=== PATIENT | female | born 2005 | race Two or more races ===

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

== ENCOUNTER 2024-01-17 18:13 | Emergency (ER) | payer OTHER, SELFPAY ==
[2024-01-17 18:16] VITALS: BP 98/65; PULSE 110; RESP 17; TEMP 38.3; O2SAT 99; BMI 22.9
--- NOTE | 2024-01-17 18:19 | ED_ITS ---
HPI - General Adult General Chief complaint: Abdominal Pain Stated complaint: abd pain + headache Time Seen by Provider: 01/17/24 21:14 Source: patient Mode of arrival: ambulatory Limitations: no limitations History of Present Illness ED Provider: Dr. Cristiana Carter HPI narrative: patient comes to the emergency room complaining of a sore throat and abdominal discomfort for the last 48 hours. Patient denies fever or chills. Patient states that anything that she swallows it hurts. Patient complaining of body aches, headache, denies neck stiffness. Patient states that the last time she took ibuprofen was approximately 13 hours ago Related Data Previous Rx's ?Medication ?Instructions ?Recorded hyoscyamine sulfate 0.125 mg 0.125 mg PO QID PRN dyspepsia #10 10/11/22 disintegrating tablet tabs ondansetron HCl 4 mg tablet 4 mg PO Q6H PRN nausea and 10/11/22 vomiting #14 tabs acetaminophen 500 mg tablet 500 mg PO Q6H PRN fever or pain 01/17/24 #14 tabs amoxicillin 500 mg-potassium 1 tab PO TID 10 days #30 tabs 01/17/24 clavulanate 125 mg tablet (Augmentin) ibuprofen 600 mg tablet 600 mg PO TID PRN fever or pain 01/17/24 #14 tabs Allergies Allergy/AdvReac Type Severity Reaction Status Date / Time No Known Allergies Allergy Verified 01/17/24 18:22 [No Known Allergies*] Review of Systems Review of Systems: Constitutional : No Weight loss, No Fever, No Chills, No Night Sweats, No Fatigue, No Malaise ENT/Mouth : No Hearing loss, No Ear Pain, No Nasal Congestion, No Sinus Pain, No Hoarseness, complaining of sore throat, No Rhinorrhea, No Swallowing Difficulty Eyes: No Eye Pain, No Swelling, No Redness, No Foreign Body, No Discharge, No Vision Changes Cardiovascular : No Chest Pain, No SOB, No Dyspnea on Exertion, No Orthopnea, No Edema, No Palpitations Respiratory : No Cough, No Sputum, No Wheezing, No Smoke Exposure, No Dyspnea Gastrointestinal : No Nausea, No Vomiting, No Diarrhea, No Constipation, No abdominal Pain, No Hematochezia, No Melena Genitourinary : no irregular bleeding, No Dysuria, No Urinary Frequency, No Hematuria, No Urinary Incontinence, No Urgency, No Flank Pain, No Urinary Flow Changes, No Hesitancy Musculoskeletal : No joint pain, No Myalgias, No Joint Swelling Skin : No Skin Lesions, No rash Neuro : No Weakness, No Numbness, No Paresthesias, No Loss of Consciousness, No Dizziness, complaining of Headache Psych : No Anxiety/Panic, No Depression, No SI/HI/AH/VH, No Social Issues, Heme/Lymph: No Bruising, No Bleeding,No Lymphadenopathy Endocrine : No Polyuria, No Polydipsia, No Temperature Intolerance [facility] Social History Social History Smoked in Last 30 Days: No Use of substances other than those prescribed or required for medical reasons: No Substance Use Type: Marijuana Advance Directives: No Advance Directives Information Provided: No Do you have a plan to hurt others: No Plan Patient : No Physical Exam ED Vital Signs: Vital Signs - 24 hr 01/17/24 18:16 01/17/24 20:18 01/17/24 21:40 Temperature 100.9 F H 101.3 F H 101.6 F H Pulse Rate 110 H 99 104 H Respiratory Rate 17 18 20 Blood Pressure 98/65 122/61 124/64 Pulse Oximetry 99 99 98 Oxygen Delivery Method Room Air Room Air Room Air 01/17/24 21:49 Temperature 101.6 F H Pulse Rate 104 H Respiratory Rate 20 Blood Pressure 124/64 Pulse Oximetry 98 Oxygen Delivery Method Room Air BMI result Body Mass Index 22.9 Const Other: Appearance: Alert. Oriented X3. No acute distress. Eyes: Pupils equal, round and reactive to light. ENT: pharynx erythematous, no exudates, no visualized abscesses Neck: Normal inspection. Neck supple. No lymph nodes noted. No crepitus CVS: Normal heart rate and rhythm. Pulses normal. Normal S1 and S2 Respiratory: No respiratory distress. Breath sounds normal. No Wheezing. No rales Abdomen: Soft and nontender. No rigidity. No distention. Skin: Skin warm and dry. Normal skin color. Normal skin turgor. Extremities: No lower extremity edema. No Lacerations. No Rash Neuro: Oriented X 3. No motor deficit. No sensory deficit. Moving all extremities. No slurred speech. CN 2 through 12 grossly intact Psych: calm, cooperative, normal affect Course Course Course Narrative: RME performed by Marybel Sebastian PA-C. Patient is a 18 year old assigned female at presenting to the emergency department with a sore throat, nausea, and chills. Detailed physical exam and review of systems are deferred to the director of primary. Swabs ordered. Patient placed back in the waiting room pending room availability and results. Medications Administered Discontinued Medications Generic Name Dose Route Start Last Admin Trade Name Frehanna PRN Reason Stop Dose Admin Acetaminophen 650 mg 01/17/24 21:24 01/17/24 21:41 Acetaminophen 325 Mg Tablet PO 01/17/24 21:25 650 mg ONCE ONE Administration Amoxicillin/Clavulanate Potassium 500 mg 01/17/24 21:19 01/17/24 21:41 Amoxicillin/Potassium Clav 500 Mg Tablet PO 01/17/24 21:20 500 mg ONCE ONE Administration Dexamethasone Sodium Phosphate 4 mg 01/17/24 21:19 01/17/24 21:41 Dexamethasone Sod Phosphate 4 Mg/Ml Vial IVPUSH 01/17/24 21:20 4 mg ONCE ONE Administration Ibuprofen 600 mg 01/17/24 21:24 01/17/24 21:42 Ibuprofen 600 Mg Tablet PO 01/17/24 21:25 600 mg ONCE ONE Administration Lidocaine HCl 15 ml 01/17/24 21:19 01/17/24 21:40 Lidocaine Hcl Viscous 2 % 15 Ml Solution MUCOUS MEM 01/17/24 21:20 15 ml ONCE ONE Administration Ondansetron HCl 4 mg 01/17/24 21:31 01/17/24 21:33 Ondansetron Odt 4 Mg Tab.Rapdis TRANSLINGU 01/17/24 21:32 4 mg ONCE ONE Administration Medical Decision Making Medical Decision Making [facility] Narrative: - my interpretation of labs: Patient tested positive for strep - patient given p.o. acetaminophen, ibuprofen in the ED, also p.o. Augmentin, dexamethasone and viscous lidocaine for symptomatic relief Differential Diagnosis Differential Diagnoses: The differential diagnosis associated with the presentation includes ( strep pharyngitis, COVID, viral URI, viral pharyngitis) Lab Data [facility] Lab Attestation statement: I reviewed the patient's lab results. Labs: Lab Results 01/17/24 Range/Units 18:29 Influenza Type A (PCR) NEGATIVE (Negative) Influenza Type B (PCR) NEGATIVE (Negative) RSV RNA Qual (PCR) NEGATIVE (Negative) SARS-CoV-2 RNA (RT-PCR) NEGATIVE (Negative) S. pyogenes GrpA DONY Positive A (Negative) Discharge Plan Discharge Clinical Impression: Acute streptococcal pharyngitis Patient Disposition: Home, Self-Care Instructions: Strep Throat (ED) Additional Instructions: Please follow-up with your primary care physician tomorrow. If you have any worsening or new symptoms, please return to the emergency room or call 911 Prescriptions: New amoxicillin-pot clavulanate [Augmentin] 500-125 mg tablet 1 tab PO TID 10 Days Qty: 30 0RF ibuprofen 600 mg tablet 600 mg PO TID PRN (Reason: fever or pain) Qty: 14 0RF acetaminophen 500 mg tablet 500 mg PO Q6H PRN (Reason: fever or pain) Qty: 14 0RF No Action hyoscyamine sulfate 0.125 mg tablet,disintegrating 0.125 mg PO QID PRN (Reason: dyspepsia) Qty: 10 0RF ondansetron HCl 4 mg tablet 4 mg PO Q6H PRN (Reason: nausea and vomiting) Qty: 14 0RF Stand Alone Forms: Work/School Release Interventions: ED Discharge Assessment Last Done: 01/17/24 21:49 Print Language: Danish
[2024-01-17 18:38] LABS: IDNOW Serial# 58CA691E; Strep A Nucleic Acid Positive (Negative)
[2024-01-17 19:17] LABS: Influenza A PCR NEGATIVE (Negative); Influenza B PCR NEGATIVE (Negative); Resp Syncy Virus RNA Qual PCR NEGATIVE (Negative); SARS COV2 PCR INHOUSE NEGATIVE (Negative)
[2024-01-17 20:18] VITALS: BP 122/61; PULSE 99; RESP 18; TEMP 38.5; O2SAT 99
[2024-01-17] MEDS: Ondansetron ODT 4 MG TAB.RAPDIS TRANSLINGU (21:33)
[2024-01-17 21:40] VITALS: BP 124/64; PULSE 104; RESP 20; TEMP 38.7; O2SAT 98
[2024-01-17] MEDS: Lidocaine HCl Viscous 2 % 15 ML SOLUTION MUCOUS MEM (21:40)
[2024-01-17] MEDS: Acetaminophen 325 MG TABLET 650 MG PO (21:41)
[2024-01-17] MEDS: dexAMETHasone sod phosphate 4 MG/ML VIAL IVPUSH (21:41)
[2024-01-17] MEDS: Amoxicillin/Potassium Clav 500 MG TABLET PO (21:41)
[2024-01-17] MEDS: Ibuprofen 600 MG TABLET PO (21:42)
[2024-01-17 21:49] VITALS: BP 124/64; PULSE 104; RESP 20; TEMP 38.7; O2SAT 98
== END 2024-01-17 21:49 | disposition home or self-care (01) ==
PROVIDERS: Physician Assistant Medical; Emergency Provider Emergency Medicine; PCP Pediatrics
DX: J02.0 Streptococcal pharyngitis (principal); R10.9 Unspecified abdominal pain; M79.10 Myalgia, unspecified site; R51.9 Headache, unspecified; Z03.818 Encounter for observation for suspected exposure to other biological agents ruled out
CPT/HCPCS: 0241U; 87651; 96374; 99284; J1100

== ENCOUNTER 2024-06-29 15:10 | Emergency (ER) | payer OTHER, SELFPAY ==
--- NOTE | ~2024-06-29 | US_ITS ---
EXAMINATION: US PELVIS CLINICAL INFORMATION: Ovarian torsion COMPARISON: None available. TECHNIQUE: Ultrasound of the pelvis is performed using both transabdominal and transvaginal transducers along with Doppler. Transvaginal imaging is performed due to inadequate visualization transabdominally. FINDINGS: Uterus: The uterus is anteverted and measures 7.9 x 3.3 x 3.8 cm. The double wall endometrial thickness is 10 mm. The uterus is smooth in contour and has normal myometrial echogenicity. No visible fibroid. Adnexa: Both ovaries are visualized. There is normal color flow to the adnexa. There is no ovarian torsion. There is no pelvic ascites or fluid collection. Right ovary 8 mL in volume and left ovary measures 15 mL in volume. Is normal arteriovenous flow seen to both ovaries. US/US pelvic and transvaginal IMPRESSION: No evidence of any active ovarian torsion. Electronically signed by: Vladimir Moffett MD 06/29/2024 08:21 PM [facility]
--- NOTE | ~2024-06-29 | CT_ITS ---
EXAMINATION: CT ABDOMEN AND PELVIS WITH CONTRAST CLINICAL INFORMATION: Right lower quadrant pain COMPARISON: None available. TECHNIQUE: Multidetector volumetric images were obtained from the superior aspect of the liver through the pubic symphysis following administration 85 mL of Omnipaque 350 intravenous contrast. Sagittal and coronal reformatted images were obtained on the technologist's workstation. Oral contrast: No This CT examination was performed using dose optimization techniques as appropriate, variously including the following: *Automated exposure control *Adjustment of mA and/or kV according to patient size (this includes techniques or standardized protocols for targeted exams where dose is matched to indication/reason for exam; i.e. extremities or head) *Use of iterative reconstruction technique DLP: 339 mGy-cm FINDINGS: LUNG BASES: The visualized lung bases are unremarkable. LIVER, GALLBLADDER, AND BILIARY TREE: The liver is normal in size, shape, and attenuation. No focal hepatic lesion or biliary ductal dilatation is present. The gallbladder is unremarkable with no evidence of radiopaque gallstones, gallbladder wall thickening, or obvious pericholecystic inflammatory changes. PANCREAS: Unremarkable. SPLEEN: Unremarkable. ADRENAL GLANDS: Unremarkable. KIDNEYS AND URETERS: The kidneys are normal in size, shape, and attenuation. No hydronephrosis, hydroureter, or calculi seen. No perinephric stranding. BLADDER: Unremarkable. Appendix is retrocecal. GASTROINTESTINAL TRACT: The small and large bowel are unremarkable. The appendix is unremarkable. ABDOMINAL WALL: No significant hernia is appreciated. LYMPH NODES: Normal. VASCULAR: Unremarkable. PELVIC VISCERA: Unremarkable. OSSEOUS STRUCTURES: Unremarkable. CT/CT abdomen pelvis w IV con IMPRESSION: Normal appendix. No focal abnormality to explain patient's symptoms. Fleischner guidelines were followed. Electronically signed by: Vladmiir Moffett MD 06/29/2024 08:27 PM [facility]
--- NOTE | ~2024-06-29 | US_ITS ---
EXAMINATION: US PELVIS CLINICAL INFORMATION: Ovarian torsion COMPARISON: None available. TECHNIQUE: Ultrasound of the pelvis is performed using both transabdominal and transvaginal transducers along with Doppler. Transvaginal imaging is performed due to inadequate visualization transabdominally. FINDINGS: Uterus: The uterus is anteverted and measures 7.9 x 3.3 x 3.8 cm. The double wall endometrial thickness is 10 mm. The uterus is smooth in contour and has normal myometrial echogenicity. No visible fibroid. Adnexa: Both ovaries are visualized. There is normal color flow to the adnexa. There is no ovarian torsion. There is no pelvic ascites or fluid collection. Right ovary 8 mL in volume and left ovary measures 15 mL in volume. Is normal arteriovenous flow seen to both ovaries. US/US pelvic ovarian doppler IMPRESSION: No evidence of any active ovarian torsion. Electronically signed by: Vladimir Moffett MD 06/29/2024 08:21 PM [facility]
[2024-06-29 15:42] VITALS: BP 121/78; PULSE 95; RESP 20; TEMP 36.7; O2SAT 99; BMI 22.5
--- NOTE | 2024-06-29 15:49 | ED_ITS ---
HPI - General Adult General Chief complaint: Abdominal Pain Stated complaint: Abd pain Time Seen by Provider: 06/29/24 17:17 Source: patient Mode of arrival: ambulatory Limitations: no limitations History of Present Illness ED Provider: Seth Thomas HPI narrative: 19-year-old female presents to ED for right lower quadrant tenderness since last night. Patient states having nausea and vomiting. Patient denies any GI or urinary symptoms. Patient denies any flank pain fever or chills. Related Data Previous Rx's ?Medication ?Instructions ?Recorded hyoscyamine sulfate 0.125 mg 0.125 mg PO QID PRN dyspepsia #10 10/11/22 disintegrating tablet tabs ondansetron HCl 4 mg tablet 4 mg PO Q6H PRN nausea and 10/11/22 vomiting #14 tabs acetaminophen 500 mg tablet 500 mg PO Q6H PRN fever or pain 01/17/24 #14 tabs amoxicillin 500 mg-potassium 1 tab PO TID 10 days #30 tabs 01/17/24 clavulanate 125 mg tablet (Augmentin) ibuprofen 600 mg tablet 600 mg PO TID PRN fever or pain 01/17/24 #14 tabs naproxen 500 mg tablet 500 mg PO BID PRN pain 7 days #14 06/29/24 tabs Allergies Allergy/AdvReac Type Severity Reaction Status Date / Time No Known Allergies Allergy Verified 06/29/24 15:44 [No Known Allergies*] Review of Systems 2 Review of Systems: Right lower quadrant abdominal pain Yes all other systems are reviewed and are negative PMFSH Social History Social History Substance Use Type: Marijuana Advance Directives: No Advance Directives Information Provided: No Do you have a plan to hurt others: No Plan Physical Exam ED Vital Signs: Vital Signs - 24 hr 06/29/24 15:42 06/29/24 17:22 06/29/24 18:52 Temperature 98.1 F 97.8 F Pulse Rate 95 79 71 Respiratory Rate 20 16 16 Blood Pressure 121/78 111/70 95/57 L Pulse Oximetry 99 100 99 Oxygen Delivery Method Room Air Room Air Room Air 06/29/24 20:44 06/29/24 21:02 Temperature 98.4 F 98.4 F Pulse Rate 76 76 Respiratory Rate 16 16 Blood Pressure 107/69 107/69 Pulse Oximetry 96 96 Oxygen Delivery Method Room Air Room Air BMI result Body Mass Index 22.5 Const General: cooperative, healthy appearing, comfortable, no acute distress, well developed, alert, awake and Physically active Orientation/consciousness: patient oriented x3 HENMT Head: Yes normal to inspection, Yes No palpable skull fracture present and Yes normocephalic Eyes General: appearance normal, both eyes and all related structures Neck Neck: Yes normal visual inspection, Yes full ROM, Yes no lymphadenopathy, Yes no meningeal signs, Yes trachea midline, Yes supple, No anterior neck swelling and No tender Chest Chest palpation & inspection: normal inspection of the chest and normal palpation of entire chest wall Resp Effort & Inspection: normal respiratory effort and able to speak in complete sentences Auscultation: clear to auscultation bilaterally Cardio Jugular venous distension: no JVD Heart sounds: S1 normal heart sound present and S2 normal heart sound present GI Inspection: Yes normal to inspection Palpation (GI): Soft to palpation, not firm, Tenderness to palpation present (GI) in the RLQ, Guarding due to palpation present (GI) in the RLQ and not rigid General: Yes no CVA tenderness Back/Spine/Pelvis Back: no CVA tenderness and No back tenderness Skin General skin exam: no rashes or lesions noted, elasticity normal and turgor normal Neuro General: patient oriented x3, gait normal, tone normal, moves all extremities, Normal light touch and pain sensation, no meningeal signs, no focal motor deficits, CN's II-XI intact bilaterally and normal sensation to monofilament Extrem General: Yes normal to inspection, Yes full ROM and Yes capillary refill normal Psych Appearance: grossly normal, well kempt and not disheveled Course Course Course Narrative: RME: 19-year-old female presents to ED for right lower quadrant pain since last night with nausea and vomiting. Physical exam positive for right lower quadrant tenderness on palpation labs ordered. Medications Administered Discontinued Medications Generic Name Dose Route Start Last Admin Trade Name Freq PRN Reason Stop Dose Admin Sodium Chloride 1,000 mls @ 999 mls/hr 06/29/24 19:38 06/29/24 20:53 Ns IV 06/29/24 20:38 Infused .Q1H1M STA Infusion Iohexol 100 ml 06/29/24 18:47 06/29/24 18:47 Iohexol 350 Mg/Ml 100 Ml Infus..Btl IV 06/29/24 18:48 85 ml ONCE ONE Administration Ketorolac Tromethamine 30 mg 06/29/24 17:06 06/29/24 17:30 Ketorolac Tromethamine 30 Mg/Ml Vial IVPUSH 06/29/24 17:07 30 mg ONCE ONE Administration Medical Decision Making Medical Decision Making [facility] Narrative: 19-year-old female presents to ED for right lower quadrant pain. August tenderness right lower quadrant pain abdominal CT scan and ultrasound ordered to rule out appendicitis and torsion. Labs are normal. Toradol ordered. 8:50pm: Abdominal CT scan negative for any appendicitis or any other abdominal etiology. Pelvic transvaginal ultrasound negative for signs of ovarian torsion, ovarian abscess or ovarian cyst. Patient offered pelvic exam for STI evaluation/swabs but she refused and will have STI testing at her primary care provider. Patient explained worrisome signs and informed to return to the ED immediately. patient states pain resolved after being givem toradol. patients pass po challenge. patient states no pain. Differential Diagnosis Differential Diagnoses: The differential diagnosis associated with the presentation includes (Appendicitis, ovarian torsion and ovarian cyst. ovarian Abscess) Admission/Observation Consideration of admission/observation: Escalation of care including admission/observation considered Lab Data [facility] Lab Attestation statement: I reviewed the patient's lab results. 06/29/24 16:15 06/29/24 16:15 Labs: Lab Results 06/29/24 Range/Units 16:15 WBC 9.1 (4.8-10.8) X10*3/uL RBC 4.39 (4.20-5.50) X10*6/uL Hgb 12.9 (12.0-16.0) g/dl Hct 39.8 (37.0-47.0) % MCV 90.7 (80.0-98.0) fL MCH 29.4 (27.0-33.0) pg MCHC 32.4 (31.0-35.0) g/dl RDW 14.2 (11.0-16.0) % Plt Count 291 (160-400) X10*3/uL MPV 8.8 L (9.4-12.3) fL Immature Gran % (Auto) 0.3 (0.0-0.4) % Neut % (Auto) 68.0 (45-73) % Lymph % (Auto) 23.0 (20-40) % [place] % (Auto) 7.5 (2-11) % Eos % (Auto) 1.0 (0-4) % Baso % (Auto) 0.2 (0-2) % Lymph # (Auto) 2.1 (1.2-4.9) X10*3/uL [place] # (Auto) 0.7 (0.1-1.2) X10*3/uL Eos # (Auto) 0.1 (0.0-0.4) X10*3/uL Baso # (Auto) 0.0 (0.0-0.2) X10*3/uL Abs Immat Gran (auto) 0.03 (0.00-0.03) X10*3/uL Absolute Neuts (auto) 6.2 (2.0-8.3) x10*3/uL Absolute Nucleated RBC 0.000 (0.0-0.012) X10*3/uL Nucleated RBC % (auto) 0.0 (0.0-0.2) /100WBC PT 11.3 (10.9-12.4) SEC INR 1.0 (0.9-1.1) APTT 28.9 (26.0-36.8) SEC Sodium 140 (135-145) mmol/L Potassium 4.1 (3.3-5.1) mmol/L Chloride 106 (96-108) mmol/L Carbon Dioxide 27 (22-29) mmol/L Anion Gap 11 L (12-20) BUN 10 (9-16) mg/dL Creatinine 0.85 (0.5-1.4) mg/dL Estim Creat Clear Calc 79.0 Estimated GFR > 60 Random Glucose 99 (60-115) mg/dL Calcium 9.4 (8.4-10.2) mg/dL Total Bilirubin 0.3 (0.0-1.0) mg/dL AST 17 (5-31) U/L ALT 15 (0-31) U/L Alkaline Phosphatase 45 (39-117) U/L Total Protein 7.8 (6.5-8.0) g/dL Albumin 4.5 (3.5-5.0) g/dL Lipase 18 (8-78) U/L Beta HCG, Quant < 2 mIU/mL Urine Color Yellow Urine Appearance Cloudy Urine pH 7.5 (5.0-9.0) Ur Specific [place] 1.020 (1.005-1.025) Urine Protein Negative (Neg-Trace) mg/dL Urine Glucose (UA) Negative (Negative) mg/dL Urine Ketones Negative (Negative) mg/dL Urine Blood Negative (Negative) Urine Nitrite Negative (Negative) Ur Leukocyte Esterase Negative (Negative) Urine Test NEGATIVE (NEGATIVE) Independent Interpretation I performed an independent interpretation of an: Plain X-Ray Radiology Impression Discussion of test interpretation with radiology: I have reviewed the radiologist's reading. Independent Historian Clinical information obtained from an independent historian. History obtained from or confirmed by: Other (patient) External Record Review External record reviewed: Other (prior visits) Prescription Management I considered prescription management with: Pain Medication Discharge Plan Discharge Clinical Impression: Abdominal pain Patient Disposition: Home, Self-Care Instructions: Abdominal Pain (ED) Additional Instructions: Return to the ED immediately for severe abdominal pain, vaginal discharge, vaginal bleeding, flank pain, fever, chills, nausea, vomiting, weakness, dizziness, or any other concerning symptoms. Recommend follow-up with the primary care provider. CT/CT abdomen pelvis w IV con IMPRESSION: Normal appendix. No focal abnormality to explain patient's symptoms. Fleischner guidelines were followed. Electronically signed by: Vladimir Moffett MD 06/29/2024 08:27 PM [facility] US/US pelvic and transvaginal IMPRESSION: No evidence of any active ovarian torsion. Electronically signed by: Vladimir Moffett MD 06/29/2024 08:21 PM [facility] Prescriptions: New naproxen 500 mg tablet 500 mg PO BID PRN (Reason: pain) 7 Days Qty: 14 0RF No Action hyoscyamine sulfate 0.125 mg tablet,disintegrating 0.125 mg PO QID PRN (Reason: dyspepsia) Qty: 10 0RF ondansetron HCl 4 mg tablet 4 mg PO Q6H PRN (Reason: nausea and vomiting) Qty: 14 0RF amoxicillin-pot clavulanate [Augmentin] 500-125 mg tablet 1 tab PO TID 10 Days Qty: 30 0RF ibuprofen 600 mg tablet 600 mg PO TID PRN (Reason: fever or pain) Qty: 14 0RF acetaminophen 500 mg tablet 500 mg PO Q6H PRN (Reason: fever or pain) Qty: 14 0RF Stand Alone Forms: Work/School Release Interventions: ED Discharge Assessment Last Done: 06/29/24 21:02 Discharge Date/Time: 06/29/24 21:03 Print Language: Yi
[2024-06-29 16:20] LABS: MANUAL DIFF FLAG NO
[2024-06-29 16:22] LABS: Basophils Percent Auto 0.2 % (0-2); Eosinophils Absolute Auto 0.1 X10*3/uL (0.0-0.4); Hematocrit 39.8 % (37.0-47.0); Hemoglobin 12.9 g/dl (12.0-16.0); Imm Gran Abs Auto 0.03 X10*3/uL (0.00-0.03); Imm Gran Pct Auto 0.3 % (0.0-0.4); Lymphocytes Absolute Auto 2.1 X10*3/uL (1.2-4.9); Mean Corpuscular HGB Conc 32.4 g/dl (31.0-35.0); Mean Corpuscular Hemoglobin 29.4 pg (27.0-33.0); Mean Corpuscular Volume 90.7 fL (80.0-98.0); Mean Platelet Volume 8.8 fL (9.4-12.3); Monocytes Absolute Auto 0.7 X10*3/uL (0.1-1.2); Monocytes Percent Auto 7.5 % (2-11); Neutrophils Absolute Auto 6.2 x10*3/uL (2.0-8.3); Platelet Count 291 X10*3/uL (160-400); Red Blood Count 4.39 X10*6/uL (4.20-5.50); Red Cell Distribution Width 14.2 % (11.0-16.0); White Blood Count 9.1 X10*3/uL (4.8-10.8)
[2024-06-29 16:32] LABS: Appearance Urine Cloudy; Color Urine Yellow; Glucose Urine UA Negative (Negative); Leukocyte Esterase Urine Negative (Negative); Nitrite Urine Negative (Negative); PH 7.5 (5.0-9.0); Urine Blood Negative (Negative); Urine Ketones Negative (Negative); Urine Protein Negative (Neg-Trace)
[2024-06-29 16:34] LABS: Prothrombin Time 11.3 SEC (10.9-12.4)
[2024-06-29 16:35] LABS: UPreg QC Valid YES; Urine Pregnancy NEGATIVE (NEGATIVE)
[2024-06-29 16:36] LABS: Partial Thromboplastin Time 28.9 SEC (26.0-36.8)
[2024-06-29 16:41] LABS: Albumin Level 4.5 g/dL (3.5-5.0); Anion Gap 11 (12-20); Aspartate Amino Transferase 17 U/L (5-31); Bilirubin Total 0.3 mg/dL (0.0-1.0); Blood Urea Nitrogen 10 mg/dL (9-16); Calcium 9.4 mg/dL (8.4-10.2); Carbon Dioxide 27 mmol/L (22-29); Chloride 106 mmol/L (96-108); Estimated Glomerular Filt Rate > 60; Glucose Random 99 mg/dL (60-115); HCG Quantitative < 2 mIU/mL; Lipase 18 U/L (8-78); Potassium 4.1 mmol/L (3.3-5.1); Sodium 140 mmol/L (135-145); Total Protein 7.8 g/dL (6.5-8.0)
[2024-06-29 16:52] LABS: Alanine Aminotransferase 15 U/L (0-31); Alkaline Phosphatase 45 U/L (39-117)
[2024-06-29 17:22] VITALS: BP 111/70; PULSE 79; RESP 16; O2SAT 100
[2024-06-29] MEDS: Ketorolac Tromethamine 30 MG/ML VIAL IVPUSH (17:30)
[2024-06-29] MEDS: iohexoL 350 MG/ML 100 ML INFUS..BTL IV (18:47)
[2024-06-29 18:52] VITALS: BP 95/57; PULSE 71; RESP 16; TEMP 36.6; O2SAT 99
[2024-06-29] MEDS: 0.9 % Sodium Chloride 1,000 ML 999 ML IV (19:58)
[2024-06-29 20:44] VITALS: BP 107/69; PULSE 76; RESP 16; TEMP 36.9; O2SAT 96
[2024-06-29 21:02] VITALS: BP 107/69; PULSE 76; RESP 16; TEMP 36.9; O2SAT 96
== END 2024-06-29 21:03 | disposition home or self-care (01) ==
PROVIDERS: Physician Assistant; Emergency Provider Emergency Medicine Emergency Medical Services
DX: R10.813 Right lower quadrant abdominal tenderness (principal); R10.2 Pelvic and perineal pain; R11.2 Nausea with vomiting, unspecified; Z79.899 Other long term (current) drug therapy
CPT/HCPCS: 36415; 74177; 76830; 76856; 80053; 81003; 81025; 83690; 84702; 85025; 85610; 85730; 93975; 96361; 96374; 99284; J1885; Q9967

== ENCOUNTER 2025-07-09 09:42 | Emergency (ER) | payer OTHER, SELFPAY ==
--- NOTE | ~2025-07-09 | CT_ITS ---
EXAMINATION: CT ABDOMEN AND PELVIS WITH CONTRAST CLINICAL INFORMATION: Diffuse abdominal tenderness. COMPARISON: June 29, 2024. TECHNIQUE: Multidetector volumetric images were obtained from the superior aspect of the liver through the pubic symphysis following administration 85 mL of Omnipaque 350 intravenous contrast. Sagittal and coronal reformatted images were obtained on the technologist's workstation. Oral contrast: No This CT examination was performed using dose optimization techniques as appropriate, variously including the following: *Automated exposure control *Adjustment of mA and/or kV according to patient size (this includes techniques or standardized protocols for targeted exams where dose is matched to indication/reason for exam; i.e. extremities or head) *Use of iterative reconstruction technique DLP: 309 mGy-cm FINDINGS: LUNG BASES: No acute airspace disease. LIVER, GALLBLADDER, AND BILIARY TREE: Liver measures 15 cm. Probable focal fatty infiltration adjacent to the falciform ligament. No enhancing mass. Portal veins and hepatic veins and intrahepatic portion of the IVC are patent. Gallbladder is contracted. No pericholecystic fluid collection or gallbladder wall thickening. PANCREAS: No solid or cystic mass. No main pancreatic ductal dilatation. No peripancreatic fluid collection. SPLEEN: 8 cm. No solid or cystic mass. ADRENAL GLANDS: No nodular lesions. KIDNEYS AND URETERS: No hydronephrosis. No gross nephrolithiasis. Subcentimeter cyst, right kidney. No enhancing mass. No dilatation of the ureters. BLADDER: Collapse. GASTROINTESTINAL TRACT: Appendix is normal. The knees in the inferior aspect of the right hepatic lobe. No intestinal obstruction pattern. Collapsed appearance of the left hemicolon. No intestinal wall thickening. No ascites. No pneumoperitoneum. No peripheral enhancing fluid collection. ABDOMINAL WALL: No gross umbilical hernia. LYMPH NODES: No mesenteric or retroperitoneal lymphadenopathy. VASCULAR: No aneurysm or dissection. No gross plaques. PELVIC VISCERA: Tubular fluid-filled structure in the left adnexa. Uterus is in anteversion flexion position. OSSEOUS STRUCTURES: [Post vertebra, L2 and L3. Levoconvex curvature lumbar spine. No acute fracture. No lytic or blastic lesions. CT/CT abdomen pelvis w IV con IMPRESSION: Hydrosalpinx, left, should be considered in the correct clinical settings. Fleischner guidelines were followed. Electronically signed by: Omar Santos MD 07/09/2025 03:59 PM EST
--- NOTE | ~2025-07-09 | US_ITS ---
CLINICAL HISTORY: L hydrosalpinx on CT. Non preg. Abd pain US pelvis transvaginal Comparison: CT/REG/SR - CT ABDOMEN PELVIS WITH IV CONTRAST - 07/09/25 15:43 EST Findings: Transvaginal scanning performed. Anteverted uterus is 8.3 x 3.6 x 4.5 cm length. Normal myometrium. No endometrial lesion, 5 mm thickness. Right ovary 3.9 x 2.6 x 3.3 cm. Left ovary 4.1 x 2.2 x 3.2 cm. Moreover, tubular hypoechoic focus with posterior acoustic enhancement, 1.7 x 1.4 x 1.6 cm. Normal color Doppler of both ovaries. No free fluid. IMPRESSION: 1. Left hydrosalpinx. This document has been electronically signed by: Jabier Stewart MD on 07/09/2025 18:52:00
[2025-07-09 09:48] VITALS: BP 118/68; PULSE 83; RESP 18; TEMP 36.6; O2SAT 94; BMI 21.0
[2025-07-09 11:00] LABS: MANUAL DIFF FLAG NO
[2025-07-09 11:03] LABS: Hematocrit 36.1 % (37.0-47.0); Hemoglobin 12.0 g/dl (12.0-16.0); Imm Gran Abs Auto 0.03 X10*3/uL (0.00-0.03); Imm Gran Pct Auto 0.3 % (0.0-0.4); Lymphocytes Absolute Auto 1.4 X10*3/uL (1.2-4.9); Mean Corpuscular HGB Conc 33.2 g/dl (31.0-35.0); Mean Corpuscular Hemoglobin 29.7 pg (27.0-33.0); Mean Corpuscular Volume 89.4 fL (80.0-98.0); NRBC Abs Auto 0.000 X10*3/uL (0.0-0.012); NRBC Pct Auto 0.0 /100WBC (0.0-0.2); Platelet Count 314 X10*3/uL (160-400); Red Blood Count 4.04 X10*6/uL (4.20-5.50); White Blood Count 9.0 X10*3/uL (4.8-10.8)
[2025-07-09 11:15] LABS: Lipase 17 U/L (8-78); Magnesium 1.9 mg/dL (1.6-2.6)
[2025-07-09 11:16] LABS: Alanine Aminotransferase 8 U/L (0-31); Albumin Level 4.6 g/dL (3.5-5.0); Alkaline Phosphatase 45 U/L (39-117); Anion Gap 11 (12-20); Aspartate Amino Transferase 27 U/L (5-31); Blood Urea Nitrogen 12 mg/dL (9-16); Calcium 9.6 mg/dL (8.4-10.2); Carbon Dioxide 26 mmol/L (22-29); Chloride 107 mmol/L (96-108); Creatinine Clr Calc Pharmacy 109.1; Estimated Glomerular Filt Rate > 60; Potassium 4.2 mmol/L (3.3-5.1); Sodium 140 mmol/L (135-145); Total Protein 7.7 g/dL (6.5-8.0)
[2025-07-09 13:22] VITALS: BP 101/70; PULSE 88; RESP 18; TEMP 37.1; O2SAT 99
--- NOTE | 2025-07-09 14:08 | ED_ITS ---
HPI - Abdominal Pain General Chief Complaint: Abdominal Pain Stated Complaint: abd pain, painful to take a breath Time Seen by Provider: 07/09/25 12:53 History of Present Illness ED Provider: Butch Hernandez MD HPI narrative: 20-year-old female no diagnosed medical issues daily marijuana smoker with several weeks to months of upper abdominal pain she has been nauseated occasional nonbloody nonbilious vomiting. No significant postprandial pain she mostly points of the right upper abdomen sometimes feel like it is worse with deep breathing. Related Data Previous Rx's ?Medication ?Instructions ?Recorded hyoscyamine sulfate 0.125 mg 0.125 mg PO QID PRN dyspe psia #10 10/11/22 disintegrating tablet tabs ondansetron HCl 4 mg tablet 4 mg PO Q6H PRN nausea and 10/11/22 vomiting #14 tabs acetaminophen 500 mg tablet 500 mg PO Q6H PRN fever or pain 01/17/24 #14 tabs amoxicillin 500 mg-potassium 1 tab PO TID 10 days #30 tabs 01/17/24 clavulanate 125 mg tablet (Augmentin) ibuprofen 600 mg tablet 600 mg PO TID PRN fever or p ain 01/17/24 #14 tabs naproxen 500 mg tablet 500 mg PO BID PRN pain 7 day s #14 06/29/24 tabs Allergies Allergy/AdvReac Type Severity Reaction Status Date / Time No Known Allergies (No Known Allergy Verified 07/09/25 09:49 Allergies*) [facility] Social History Social History Smoked in Last 30 Days: No Use of substances other than those prescribed or required for medical reasons: Yes Substance Use Type: Marijuana Substance Use Frequency: Daily Advance Directives: No Advance Directives Information Provided: No Do you have a plan to hurt others: No Plan Patient : No Physical Exam ED Exam Exam: EXAM: Gen: Alert, awake, well appearing, well hydrated. Head: Atraumatic Eyes: Anicteric, Normal conjunctiva. ENT: Moist mucosa, no pallor. Neck: Supple. Respiratory: Breathing comfortably, No distress.Clear to auscultation bilaterally, symmetric chest expansion, No wheeze, rales, ronchi. Cardiovascular: Regular rate and rhythm. No murmurs or rub. Well perfused periphery, warm extremities. No edema. Abdominal: Soft, no objective distension. No palpable masses or obvious organomegaly. No focal tenderness, no guarding, no rebound tenderness or other peritoneal findings. : No flank tenderness. Neuro: Alert. Gross movement of all extremities intact. Vital signs: See flowsheet Vital Signs: Vital Signs - 24 hr 07/09/25 09:48 07/09/25 13:22 07/09/25 15:26 Temperature 97.8 F 98.7 F 98.5 F Pulse Rate 83 88 73 Respiratory Rate 18 18 16 Blood Pressure 118/68 101/70 101/68 Pulse Oximetry 94 99 100 Oxygen Delivery Method Room Air Room Air Room Air BMI result Body Mass Index 21.0 Procedures Procedure Narrative Procedure Narrative: EMERGENCY ULTRASOUND INTERPRETATION- Limited Point of Care Biliary [This study was ordered, performed, and interpreted by myself. The study reveals: Impression: NO EVIDENCE OF ACUTE INFLAMMATION OF THE GALLBLADDER, NO EVIDENCE OF OBSTRUCTIVE BILIARY DISEASE] [Indication: RUQ PAIN Gallbladder: NO WALL THICKENING > 4MM, NO PERICHOLECYSTIC FLUID, NOT GROSSLY DILATED/HYDROPIC. -Additional: WALL MEASUREMENT: CBD MEASURMENT IF OBTAINED: Performed by: Butch Hernandez MD Images were stored CPT:90825] Medical Decision Making Medical Decision Making [facility] Narrative: 20 F with upper abd pain. nausea. No GI bleeding. mild upper and ttp. thin, no surg hx. Looks well not ill or dehydrated or toxic. No gallstones, ductal dilation. US wnl, no cholecystitis. CT with only L adnexal hydrosalpinx. No sx specifically non , no discharge, dyspyreunia, or clinical/history signs to suggestg STI/PID/TOA, non tender LLQ probably incidental finding. Pt has [facility] [employer] will call tomorrow to establish follow up. Differential Diagnosis Castritis, gastroenteritis, pancreatitis, ulcer, biliary colic, cannabis hyper- emesis syndrome, dehydration, electrolyte derangement. Lab Data [facility] Lab Attestation statement: I reviewed the patient's lab results. 07/09/25 10:57 07/09/25 10:57 Labs: Lab Results 07/09/25 07/09/25 Range/Units 10:57 15:27 WBC 9.0 (4.8-10.8) X10*3/uL RBC 4.04 L (4.20-5.50) X10*6/uL Hgb 12.0 (12.0-16.0) g/dl Hct 36.1 L (37.0-47.0) % MCV 89.4 (80.0-98.0) fL MCH 29.7 (27.0-33.0) pg MCHC 33.2 (31.0-35.0) g/dl RDW 13.6 (11.0-16.0) % Plt Count 314 (160-400) X10*3/uL MPV 9.0 L (9.4-12.3) fL Immature Gran % (Auto) 0.3 (0.0-0.4) % Neut % (Auto) 75.6 H (45-73) % Lymph % (Auto) 15.6 L (20-40) % [place] % (Auto) 8.0 (2-11) % Eos % (Auto) 0.4 (0-4) % Baso % (Auto) 0.1 (0-2) % Lymph # (Auto) 1.4 (1.2-4.9) X10*3/uL [place] # (Auto) 0.7 (0.1-1.2) X10*3/uL Eos # (Auto) 0.0 (0.0-0.4) X10*3/uL Baso # (Auto) 0.0 (0.0-0.2) X10*3/uL Abs Immat Gran (auto) 0.03 (0.00-0.03) X10*3/uL Absolute Neuts (auto) 6.8 (2.0-8.3) x10*3/uL Absolute Nucleated RBC 0.000 (0.0-0.012) X10*3/uL Nucleated RBC % (auto) 0.0 (0.0-0.2) /100WBC Sodium 140 (135-145) mmol/L Potassium 4.2 (3.3-5.1) mmol/L Chloride 107 (96-108) mmol/L Carbon Dioxide 26 (22-29) mmol/L Anion Gap 11 L (12-20) BUN 12 (9-16) mg/dL Creatinine 0.61 (0.5-1.4) mg/dL Estim Creat Clear Calc 109.1 Estimated GFR > 60 Random Glucose 91 (60-115) mg/dL Calcium 9.6 (8.4-10.2) mg/dL Magnesium 1.9 (1.6-2.6) mg/dL Total Bilirubin 0.6 (0.0-1.0) mg/dL AST 27 (5-31) U/L ALT 8 (0-31) U/L Alkaline Phosphatase 45 (39-117) U/L Total Protein 7.7 (6.5-8.0) g/dL Albumin 4.6 (3.5-5.0) g/dL Lipase 17 (8-78) U/L Beta HCG, Quant < 2 mIU/mL Urine Color Yellow Urine Appearance Clear Urine pH 6.0 (5.0-9.0) Ur Specific [place] 1.025 (1.005-1.025) Urine Protein Negative (Neg-Trace) mg/dL Urine Glucose (UA) Negative (Negative) mg/dL Urine Ketones 40 (Negative) mg/dL Urine Blood Negative (Negative) Urine Nitrite Negative (Negative) Ur Leukocyte Esterase Negative (Negative) Urine Test NEGATIVE (NEGATIVE) Radiology Impression Discussion of test interpretation with radiology: I discussed test interpretation with the radiologist (RAD CALLED TO DISCUSS HYDROSALPINX) and I have reviewed the radiologist's reading. Independent Historian Clinical information obtained from an independent historian. History obtained from or confirmed by: Parent Medications Administered Discontinued Medications Generic Name Dose Route Start Last Admin Trade Name Freq PRN Reason Stop Dose Admin Famotidine 20 mg 07/09/25 13:49 07/09/25 14:25 Famotidine/Pf 20 Mg/2 Ml Vial IVPUSH 07/09/25 13:50 20 mg ONCE ONE Administration Iohexol 100 ml 07/09/25 15:42 07/09/25 15:43 Iohexol 350 Mg/Ml 100 Ml Infus..Btl IV 07/09/25 15:43 85 ml ONCE ONE Administration Ketorolac Tromethamine 15 mg 07/09/25 13:49 07/09/25 14:25 Ketorolac Tromethamine 15 Mg/Ml Vial IVPUSH 07/09/25 13:50 15 mg ONCE ONE Administration Morphine Sulfate 2 mg 07/09/25 13:49 07/09/25 14:25 Morphine Sulfate 4 Mg/Ml Cartridge IVPUSH 07/09/25 13:50 2 mg ONCE ONE Administration Protocol Ondansetron HCl 4 mg 07/09/25 13:49 07/09/25 14:25 Ondansetron Hcl 4 Mg/2 Ml Vial IVPUSH 07/09/25 13:50 4 mg ONCE ONE Administration Discharge Plan Discharge Clinical Impression: Hydrosalpinx Patient Disposition: Home, Self-Care Instructions: Abdominal Pain (ED) Additional Instructions: Today you were evaluated in the emergency department for chronic abdominal pain. As we discuss this maybe related to your daily marijuana smoking. You had a CT scan of your abdomen which did not show any acute abnormalities other than possibility of dilated fallopian tube in the left side which is of unclear significance today. You had a gallbladder ultrasound which was completely normal. Your blood work was reassuring and you had no signs of UTI. Your test is negative. Regarding the dilated left fallopian tube given that you do not have focal pain or tenderness in that area it is unlikely this is an acute issue. We recommend trying to establish outpatient gynecology follow up regarding this. Prescriptions: No Action hyoscyamine sulfate 0.125 mg tablet,disintegrating 0.125 mg PO QID PRN (Reason: dyspepsia) Qty: 10 0RF ondansetron HCl 4 mg tablet 4 mg PO Q6H PRN (Reason: nausea and vomiting) Qty: 14 0RF amoxicillin-pot clavulanate [Augmentin] 500-125 mg tablet 1 tab PO TID 10 Days Qty: 30 0RF ibuprofen 600 mg tablet 600 mg PO TID PRN (Reason: fever or pain) Qty: 14 0RF acetaminophen 500 mg tablet 500 mg PO Q6H PRN (Reason: fever or pain) Qty: 14 0RF naproxen 500 mg tablet 500 mg PO BID PRN (Reason: pain) 7 Days Qty: 14 0RF Stand Alone Forms: Work/School Release Interventions: ED Discharge Assessment Last Done: 07/09/25 17:56 Discharge Date/Time: 07/09/25 17:56 Print Language: Faroese
[2025-07-09 15:26] VITALS: BP 101/68; PULSE 73; RESP 16; TEMP 36.9; O2SAT 100
--- OUTSIDE RECORDS SUMMARY | 2025-07-09 15:39 | XMS_ITS ---
Author Name [facility] Organization Unknown Care Team Organization Name Specialty Phone Email Start Date End [facility] 024 [facility] Nohemy Maldonado Primary Care 03/28/2023 024 [facility] Estela Weeks Primary Care 10/23/20222023 [facility] Dagoberto Arnold Primary Care 05/29/20222023
--- OUTSIDE RECORDS SUMMARY | 2025-07-09 15:39 | XMS_ITS | Clinical Summary ---
Author Organization [facility] [address] [place] [address] [place] [phone] Phone Care Team Providers Care Stonemason Supervisor Name Role Phone Nohemy Maldonado MD Primary Care Provider [phone] Allergies No known active allergies Medications No known medications Active Problems Problem Noted Date Diagnosed Date Positive Chlamyida test 08/25/2024 Overview (04/21/2025): 04/21/25 Regulatory IMO Update Positive autoantibody screening for celiac disea se 06/24/2020 Adjustment disorder of adolescence 06/02/2020 Overview (06/05/2024): 02/10/19 Mother concerned child was depressed after of boyfriend 2 weeks earlier. Mild depression. Start melatonin 5 mg QHS. Exercise-induced coughing episode 06/02/2020 Overview (06/05/2024): 02/06/18 becomes short of breath with running at school or cheerleading. Has to stop. Breathing slowly returns to normal Gastritis 06/02/2020 Overview (06/05/2024): 08/12/2020 [facility] GI - screening labs unremarkable, negative celiac screen, endoscopy ordered 06/09/19 intermittent epigastric pain for 2 weeks. Worse with food. Also history of gastritis int the past. Start omeprazole. Avoid food triggers 06/2020: referal to gi, avoid NSAIDS. Short course of omeprazole Encounters Date Type Department Care Team Description 06/09/2025 8:29 PM EST - 06/09/2025 9:57 PM EST Emergency [facility] Emergency [address] [place] [address] Head injury, initial encounter (Primary Dx) Discharge Disposition: Left Against Medical Advice from Last 3 Months Immunizations Immunization Administration Dates Next Due DTaP (Infanrix) 6wks to less than 7yo ,11/14/2004,2003,07/12,2003 [id number] (Pentacel) 2mo to less than 5yo 05/31/2004,05/31/2004,2003,09/13,2003,2003,2003 ,2003 HPV, Quadrivalent 03/11/2017,02/22/2016,02/11/20 15 Hepatitis A Pediatric (Havri x; Vaqta) 12mo to less than 19yo 03/11/2017,02/22/2016 Hepatitis B Pediatric (Enger ix B; Recombivax HB) to less than 20 yo 05/31/2004,2003,2003 IPV Inactivated polio (Ipol) 6wks and older 04/02/2007,05/23/2004,2003,05/04 Influenza trivalent, 0.5mL, preservative free (Fluarix; FluLaval; Fluzone) ages 6mo and older (Afluria) 3 years and older 10/11/2021,06/21/2020,04/03/2018 MMR, measles mumps and rubel la Live (Priorix; M-M-R II) 12mo and older 05/31/2004 MMRV, measles mumps rubella and varicella live (Proquad) 4yo to less than 7yo 04/02/2007,05/31/2004 Meningococcal B, Recombinant (Trumenba) 16yo to less than 24yo 04/14/2019 Meningococcal MCV4P 06/21/2020,02/10/2015 Meningococcal Polysaccharide 04/14/2019,02/11/20 15 Pneumococcal Conjugate Vacci ne, 7 Valent 05/31/2004,2003,2003,05/04 Tdap Tetanus diptheria acell ular pertussis (Boostrix; Adacel) 7yo and older 02/18/2025,02/10/2015 Varicella live (Varivax) 12m o and older 05/31/2004 Surgical History Surgery Date Site/Laterality Comments OTHER SURGICAL HISTORY PROCEDURE: DENIES PREVIOUS SURGERY Medical History Medical History Date Comments Adjustment disorder of adolescence 06/02/2020 DX:Adjustment disorder of adolescence; COMMENT: 02/10/19 Mother concerned child was depressed after of boyfriend 2 weeks earlier. Mild depression. Start melatonin 5 mg QHS. Exercise-induced coughing episode 06/02/2020 DX:Exercise-induced coughing episode; COMMENT: 02/06/18 becomes short of breath with running at school or cheerleading. Has to stop. Breathing slowly returns to normal Gastritis 06/02/2020 DX:Gastritis; CO MMENT: 06/09/19 intermittent epigastric pain for 2 weeks. Worse with food. Also history of gastritis int the past. Start omeprazole. Avoid food triggers History of strep pharyngitis 06/02/2020 DX: History of strep pharyngitis; COMMENT: 08/21/17 [facility] Family History Medical History Relation Name Comments Asthma Brother 1 Asthma Mother Uterine cancer Mother Breast cancer Other great grandmot her - maternal Diabetes Paternal Grandmother Ovarian cancer Neg Hx Relation Name Status Comments Brother 1 Alive Brother 2 Alive Brother 3 Alive Father Alive Mother Alive Other Alive Paternal Grandmother Sister 1 Alive Sister 2 Alive Social History Tobacco Use Types Packs/Day Years Used Date Smoking Tobacco: Never Smokeless Tobacco: Never Alcohol Use Standard Drinks/Week Comments Yes 0 (1 standard drink = 0.6 oz pur e alcohol) Occassionally Housing Instability Answer Date Recorde d Are you worried that in the next 2 months you may not have stable housing? No 02/18/2025 Food Access & Nutrition Answer Date Rec orded Do you have access to a vari ety of food including fruits and vegetables? No 02/18/2025 Health Literacy Answer Date Recorded How often do you need to hav e someone help you when you read instructions, pamphlets, or other written material from your doctor or pharmacy? Never 02/18/2025 Caregiver: How often do you need to have someone help you when you read instructions, pamphlets, or other written material from your doctor or pharmacy? Not on file 02/18/2025 Financial Risk Answer Date Recorded How hard is it for you to pa y for the very basics like food, housing, medical care, and air conditioning / heating? Not very hard 02/18/2025 Transportation Answer Date Recorded Has the lack of transportati on kept you from meetings, work, or from getting things needed for daily living? No Has the lack of transportati on kept you from medical appointments or from getting medications? No 02/18/2025 Social Isolation Answer Date Recorded How often do you feel lonely or isolated from th ose around you? Never 02/18/2025 Food Risk Answer Date Recorded Within the past 12 months we worried whether our food would run out before we got money to buy more. Never true 02/18/2025 Within the past 12 months th e food we bought just didn't last and we didn't have money to get more. Never true 02/18/2025 Dependent Care Answer Date Recorded Do you need help finding or paying for care for your loved ones. For example, childhood teacher or elderly care for an older adult? No 02/18/2025 Education Answer Date Recorded Do you think completing more education or training, like finishing a GED, going to college, or learning a trade, would be helpful for you? No 02/18/2025 Employment and Income Answer Date Recor ded During the last four weeks, have you been actively looking for work? No 02/18/2025 Living Situation Answer Date Recorded What is your living situation? Unrecognized valu e 02/18/2025 Comments No Sex and Gender Information Value Date Recorded Sex Assigned at Not on file Legal Sex Female 1:55 PM EST Gender Identity Not on file Sexual Orientation Not on file Obstetrics History Para Term AB IAB SAB Ectopic Multiple Livin g Live Births 0 0 0 0 0 0 0 0 Last Filed Vital Signs Vital Sign Reading Time Taken Comments Blood Pressure 104/65 06/09/2025 8:15 PM EST Pulse 70 06/09/2025 8:15 PM EST Temperature 36.6 C (97.8 F) 06/09/2025 8:15 PM EST Respiratory Rate 16 06/09/2025 8:15 PM EST Oxygen Saturation 99% 06/09/2025 9:05 PM EST Inhaled Oxygen Concentration - - Weight 52.6 kg (116 lb) 06/09/2025 8:15 PM EST Height 154.9 cm (5' 1 ) 06/09/2025 8:15 PM EST Body Mass Index 21.92 06/09/2025 8:15 PM EST Plan of Treatment Upcoming Encounters Date Type Department Care Team (Late st Contact Info) Description 02/18/2026 3:00 PM EDT Office Visit Adult Medicine [facility] [place], [place] [address] [place] [address] Nohemy Maldonado MD [address], [place] Health Maintenance Due Date Last Done Comments Meningococcal B Vaccine (2 of 2 - Trumenba SCDM 2-dose series) 10/13/2019 04/14/2019 COVID-19 Vaccine ( season) 2025 01/03/2021, 12/13/2020 Influenza Vaccine (#1) 2025 , 06/21/2020, 04/03/2018 Gonorrhea/Chlamydia Screening 11/23/2025 11/23/2024, 08/24/2024, 02/17/2024 Social Influencers of Health Screening 02/18/2026 02/18/2025 Cervical Cancer Screening: Pap Smear 08/24/2027 08/24/2024 Cholesterol Screening (Lipid Panel) 02/16/2029 02/17/2024, 02/17/2024 DTaP,Tdap,and Td Vaccines (8 - Td or Tdap) 02/18/2035 02/18/2025, 02/10/2015, 04/02/2007, Additional history exists RSV Immunization Adult Patients (1 - 1-dose 75+ series) 2078 HIB Vaccines Completed 05/31/2004, 05/22, 2003, Additional history exists Hepatitis B Vaccines Completed 05/31/2004, 2003, 2003 Pneumococcal Vaccine: Pediatrics (0 to 5 Years) and At-Risk Patients (6 to 49 Years) Completed 05/31/2004, 2003, 2003, Additional history exists IPV Vaccines Completed 04/02/2007, 05/22, 05/31/2004, Additional history exists MMR Vaccines Completed 04/02/2007, 05/22, 05/31/2004 Varicella Vaccines Completed 04/02/2007, 2003, 05/31/2004 HPV Vaccines Completed 03/11/2017, 09/2015, 02/10/2015 Hepatitis A Vaccines Completed 03/11/2017, 02/22/20 16 Meningococcal ACWY Vaccine Completed 06/21, 04/14/2019, 02/10/2015, Additional history exists HIV Screening Completed 11/23/2024, 02/14/2023 Hepatitis C Screening Completed 11/23/2024 Depression Screening Completed 02/18/2025 RSV Immunization Patients Under 20 months Aged Out No longer eligible based on patient's age to complete this topic Procedures Procedure Name Priority Date/Time Associated Diagnosis Comments CHLAMYDIA TRACHOMATIS AND NEISSERIA GONORRHOEAE PCR Routine 11/23/2024 9:50 AM EDT Chlamydia contact, treated HEPATITIS C ANTIBODY Routine 11/23/2024 9:41 AM EDT Encounter for annual routine gynecological examination Screen for STD (sexually transmitted disease) HIV 1, 2 ANTIBODY, P24 ANTIGEN WITH REFLEX TO DIFFERENTIATION Routine 11/23/2024 9:41 AM EDT Encounter for annual routine gynecological examination Screen for STD (sexually transmitted disease) PAP SMEAR Routine 08/24/2024 10:14 AM EST Encounter for annual routine gynecological examination Screen for STD (sexually transmitted disease) LIPID PANEL Routine 02/17/2024 from Last 3 Months or Most Recently Relevant to Health Maintenance Results * Chlamydia trachomatis and Neisseria gonorrhoeae molecular study (11/23/2024 9:50 AM EDT) Neisseria gonorrhoeae PCR Negative Negative LAB MOLECULAR DIAGNOSTICS METHOD 11/24/2024 9:31 AM EDT [facility] Chlamydia trachomatis PCR Negative Negative LAB MOLECULAR DIAGNOSTICS METHOD 11/24/2024 9:31 AM EDT [facility] Swab Cervix uteri structure / Unknown 11/23/2024 9:50 AM EDT 11/23/2024 9:50 AM EDT Carlee Brown CNM LAB MICROBIOLOGY - GENERAL ORDE RABLES Final Result Performing Organization Address City/[facility]/ZIP Co de Phone Number [facility] [address] [place] [address], [place] [phone] * Hepatitis C antibody (11/23/2024 9:41 AM EDT) Hepatitis C Antibody Negative Negative LAB CHEMISTRY METHOD 11/23/2024 1:09 PM EDT [facility] Blood Venous blood specimen / Unknown Venipuncture / Unknown 11/23/2024 9:41 AM EDT 11/23/2024 9:41 AM EDT Carlee Brown CNM LAB BLOOD ORDERABLES Final Resu lt [facility] [address] [place] [address], [place] [phone] * HIV 1,2 antibody, p24 antigen with reflex to differentiation (11/23/2024 9:41 AM EDT) HIV Combo AB/AG Negative Negative LAB CHEMISTRY METHOD 11/23/2024 1:10 PM EDT [facility] Blood Venous blood specimen / Unknown Venipuncture / Unknown 11/23/2024 9:41 AM EDT 11/23/2024 9:41 AM EDT Narrative [facility] - 11/23/2024 1:10 PM EDT This assay is a 4th generation assay allowing for earlier detection of HIV infection by detecting the presence of the HIV-1 p24 antigen as well as the traditional antibodies to HIV type 1 (including group O) and type 2. Use of a 4th generation assay is the current CDC recommendation for HIV screening. us Carlee Kevin FRANCES LAB BLOOD ORDERABLES Final Resu lt [facility] [address] [place] [address], [place] [phone] * Pap smear (08/24/2024 10:14 AM EST) Interpretation Negative for intraepithelial lesion or malignancy 08/26/2024 8:44 AM EST [facility] at 0844 EST General Categorization Negative 08/26/2024 8:44 AM [facility] Other Findings Fungal organisms morphologically consistent with Alda spp 08/26/2024 8:44 AM [facility] LMP 08/02/2024 08/26/2024 8:44 AM [facility] Specimen Adequacy Satisfactory for evaluation, endocervical/coy sformation zone component present 08/26/2024 8:44 AM [facility] Pap Methodology Liquid Based Pap Test 08/26/2024 8:44 AM [facility] Disclaimer The Pap test is a screening test which carries an inherent false negative rate. These test results should be correlated with the patient's clinical findings and history. This Pap test was processed using an automated screening system. Technical cytopathology services provided by [facility], at [address] [place] [id number] (CLIA # [id number]/Osbaldo Logan MD, Factory Machine Computer Operator.) 08/26/2024 8:44 AM [facility] Console Pap Interpretation Reported 08/26/2024 8:44 AM [facility] Brushing/Spatula Cervix uteri structure / Unknown 08/24/2024 10:14 AM EST 08/24/2024 10:14 AM EST Carlee Brown CNM LAB CYTOLOGY ORDERABLES Final R esult [facility] [address] [place] [address], * Lipid panel (02/17/2024) LDL/HDL Ratio 2 0 - 4 Triglycerides 43 0 - 150 mg/dL Cholesterol 141 0 - 200 mg/dL HDL 69 >=40 mg/dL LDL Cholesterol 64 0 - 100 mg/dL Blood Venous blood specimen / Unknown Historical Provider LAB BLOOD ORDERABLES Ileana l Result from Last 3 Months or Most Recently Relevant to Health Maintenance Insurance [facility] [place] [facility] [place] [employer] Care Teams Stonemason Supervisor Relationship Specialty Start Date End Date Nohemy Maldonado MD [address] [place] [phone] PCP - General 07/25/22
[2025-07-09] MEDS: iohexoL 350 MG/ML 100 ML INFUS..BTL IV (15:43)
[2025-07-09 15:46] LABS: Appearance Urine Clear; Glucose Urine UA Negative (Negative); PH 6.0 (5.0-9.0); Specific Gravity - Urine 1.025 (1.005-1.025)
[2025-07-09 15:49] LABS: UPreg QC Valid YES
[2025-07-09 17:56] VITALS: BP 101/68; PULSE 73; RESP 16; TEMP 36.9; O2SAT 100
== END 2025-07-09 17:56 | disposition home or self-care (01) ==
PROVIDERS: Physician Assistant; Emergency Provider Emergency Medicine
DX: R10.9 Unspecified abdominal pain (principal); R07.1 Chest pain on breathing; R11.2 Nausea with vomiting, unspecified; F12.90 Cannabis use, unspecified, uncomplicated
CPT/HCPCS: 36415; 74177; 76705; 76830; 76856; 80053; 81003; 81025; 83690; 83735; 84702; 85025; 96374; 96375; 99284; 99285; J1308; J1885; J2270; J2405; Q9967

== ENCOUNTER → 2025-07-09 13:49 | Outpatient (BNV) | payer OTHER, SELFPAY | PROVIDERS: Emergency Provider Emergency Medicine; Visit Provider Radiology Diagnostic Radiology | DX: N70.11 Chronic salpingitis (principal); R10.84 Generalized abdominal pain | CPT/HCPCS: 74177; 76830; 76856 ==